=== PATIENT | female | born 1945 | race Caucasian/White ===

== ENCOUNTER 2023-06-28 13:47 | Emergency (ER) | payer MEDICARE, OTHER ==
[~2023-06-28] VITALS: Ht 172.7 cm; Wt 104.5 kg
[2023-06-28] MEDS ORDERED: NORCO, ANEXSIA 5/325MG TABLET (HYDROcodone/ACETAMINOPHEN) PO ONE (15:30)
[2023-06-28] MEDS ORDERED: ONDANSETRON 4MG 2ML VIAL IV ONE (15:30)
[2023-06-28 16:05] VITALS: BP 178/85; TEMP 98.3; O2SAT 96
[2023-06-28] MEDS ORDERED: HYDR-3713 PO (16:43)
[2023-06-28] MEDS ORDERED: ONDA4TAB6 PO (16:43)
== END 2023-06-28 17:01 | disposition home or self-care (01) ==
LOC: M ED 13:47 → EDBD 13:47 → M ED 17:01
DX: S42.352A Displaced comminuted fracture of shaft of humerus, left arm, initial encounter for closed fracture (principal); W01.0XXA Fall on same level from slipping, tripping and stumbling without subsequent striking against object, initial encounter; I10 Essential (primary) hypertension; Z88.5 Allergy status to narcotic agent; Z79.83 Long term (current) use of bisphosphonates; Z79.1 Long term (current) use of non-steroidal anti-inflammatories (NSAID)
CPT/HCPCS: 73030; 73060; 99284; J2405

== ENCOUNTER → 2023-08-22 | Outpatient (CLI) | payer MEDICARE, OTHER ==
[~2023-08-22] MED LIST: HYDR-3713 PO; ONDA4TAB6 PO
== END ==
LOC: M PLALAB 14:34
PROVIDERS: ATTEND Student in an Organized Health Care Education/Training Program
DX: S42.212D Unspecified displaced fracture of surgical neck of left humerus, subsequent encounter for fracture with routine healing (principal); Z79.899 Other long term (current) drug therapy

== ENCOUNTER → 2023-10-12 | Outpatient (CLI) | payer MEDICARE, OTHER ==
[2023-10-12 18:34] LABS: APPEARANCE, URINE MANUAL CLEAR (CLEAR); COLOR, URINE MANUAL YELLOW (YELLOW)
[2023-10-12 18:35] LABS: BILIRUBIN, URINE MANUAL NEGATIVE (NEGATIVE); BLOOD URINE MANUAL NEGATIVE (NEGATIVE); GLUCOSE, URINE (UA) MANUAL NEGATIVE (NEGATIVE); KETONE, URINE MANUAL NEGATIVE (NEGATIVE); LEUKOCYTE ESTERASE, URINE MAN TRACE (NEGATIVE); NITRITE, URINE MANUAL POSITIVE (NEGATIVE); PROTEIN, URINE MANUAL 1+ mg/dL (NEGATIVE); UROBILINOGEN, URINE MANUAL NORMAL (NORMAL)
[2023-10-12 18:36] LABS: WBC, URINE 0-1 /hpf (0-3)
[2023-10-12 18:37] LABS: BACTERIA, URINE MOD AMOUNT; HYALINE CAST, URINE NONE SEEN /lpf (0-1); RBC, URINE NONE SEEN /hpf (0-3); SQUAMOUS EPITHELIAL CELL URINE SMALL AMOUNT /hpf (SMALL AMT)
[2023-10-12 18:38] LABS: BASO # 0.1 10^3/uL (0.0-0.2); BASO % 0.6 % (0.0-1.0); EOS # 0.3 10^3/uL (0.0-0.5); EOS % 3.4 % (0.0-3.0); HEMATOCRIT 46.3 % (36.0-47.0); HEMOGLOBIN 14.7 g/dl (12.0-15.5); LYMPH # 2.2 10^3/uL (1.5-5.0); LYMPH % 25.3 % (24.0-44.0); MEAN CORPUSCULAR HEMOGLOBIN 27.5 pg (27.0-33.0); MEAN CORPUSCULAR HGB CONC 31.7 g/dl (32.0-36.5); MEAN CORPUSCULAR VOLUME 86.7 fl (80.0-96.0); MONO # 0.7 10^3/uL (0.0-0.8); MONO % 7.6 % (2.0-8.0); NEUTROPHILS # 5.6 10^3/uL (1.5-8.5); NEUTROPHILS % 62.8 % (36.0-66.0); PLATELET COUNT, AUTOMATED 226 10^3/uL (150-450); RED BLOOD COUNT 5.34 10^6/uL (4.00-5.40); WHITE BLOOD COUNT 8.9 10^3/uL (4.0-10.0)
[2023-10-12 18:43] LABS: HEMOGLOBIN A1c 6.2 % (4.0-6.0)
[2023-10-12 18:53] LABS: INR 1.06; PROTHROMBIN TIME 13.5 SECONDS (12.5-14.5)
[2023-10-12 19:00] LABS: ALKALINE PHOSPHATASE 144 U/L (46-116); ALT/SGPT 33 U/L (7.0-40); AST/SGOT 24 U/L (<34); BILIRUBIN,TOTAL 0.4 MG/DL (0.3-1.2); BLOOD UREA NITROGEN 16 MG/DL (9-23); CALCIUM LEVEL 9.7 MG/DL (8.3-10.6); CARBON DIOXIDE LEVEL 29 MMOL/L (20-31); CHLORIDE LEVEL 106 MMOL/L (98-107); CREATININE FOR GFR 0.77 MG/DL (0.55-1.30); GLOMERULAR FILTRATION RATE > 60.0 (>39); GLUCOSE, FASTING 116 MG/DL (74-106); POTASSIUM SERUM 4.5 MMOL/L (3.5-5.1); SODIUM LEVEL 142 MMOL/L (136-145)
[2023-10-12 19:01] LABS: TOTAL 25(OH) VITAMIN D 26.7 NG/ML (20.0-100.0)
== END ==
LOC: M PLALAB 15:10
PROVIDERS: ATTEND Orthopaedic Surgery
DX: S42.215 Unspecified nondisplaced fracture of surgical neck of left humerus (principal); Y93.9 Activity, unspecified; Y92.9 Unspecified place or not applicable; Y99.8 Other external cause status; Z79.899 Other long term (current) drug therapy

== ENCOUNTER → 2023-11-28 | Outpatient (CLI) | payer OTHER, MEDICARE | LOC: M WHC 13:37 | PROVIDERS: ATTEND Orthopaedic Surgery | DX: S42.212G Unspecified displaced fracture of surgical neck of left humerus, subsequent encounter for fracture with delayed healing (principal); M85.89 Other specified disorders of bone density and structure, multiple sites; Y93.9 Activity, unspecified; Y92.9 Unspecified place or not applicable ==